=== PATIENT | male | born 1950 | race Caucasian/White ===

== ENCOUNTER 2017-03-22 10:56 | Day surgery (SDC) | payer MEDICARE, OTHER ==
[~2017-03-22] VITALS: Ht 177.8 cm; Wt 97.1 kg
[~2017-03-22 10:56] MED LIST: ASPI81CH PO; ATOR40TA PO; CLOP75; CLOP75 PO; DOCU100 PO; LISI20 PO; OXYC5 PO; TRAM50 PO; WARF4 PO
[2017-03-22] MEDS ORDERED: ASPI81CH (12:00)
[2017-10-20] MEDS ORDERED: CYCL10 PO (11:04)
[2017-10-21] MEDS ORDERED: ISOMON20 PO (08:36)
== END 2017-03-22 14:23 | disposition home or self-care (01) ==
LOC: ORSCSDS 10:56
PROVIDERS: Internal Medicine Gastroenterology
PROC: 0DBK8ZX Excision of Ascending Colon, Via Natural or Artificial Opening Endoscopic, Diagnostic (ICD-10-PCS; principal; 2017-03-22 12:30)
PROC: 0DBP8ZX Excision of Rectum, Via Natural or Artificial Opening Endoscopic, Diagnostic (ICD-10-PCS; principal; 2017-03-22 12:30)
PROC: 0DBL8ZX Excision of Transverse Colon, Via Natural or Artificial Opening Endoscopic, Diagnostic (ICD-10-PCS; principal; 2017-03-22 12:30)
DX: Z12.11 Encounter for screening for malignant neoplasm of colon (principal); D12.2 Benign neoplasm of ascending colon; K63.5 Polyp of colon; K62.1 Rectal polyp; K64.8 Other hemorrhoids; K57.30 Diverticulosis of large intestine without perforation or abscess without bleeding; Z83.71 Family history of colonic polyps; I10 Essential (primary) hypertension; I25.2 Old myocardial infarction; Z79.01 Long term (current) use of anticoagulants; Z79.82 Long term (current) use of aspirin; Z79.899 Other long term (current) drug therapy
CPT/HCPCS: 88305; J7120

== ENCOUNTER 2017-10-21 00:38 | Observation (INO) | payer MEDICARE, OTHER ==
[~2017-10-21] VITALS: Ht 177.8 cm; Wt 95.0 kg
[~2017-10-21 00:38] MED LIST changes: +ASPI81CH; +CYCL10 PO
[2017-10-21] MEDS ORDERED: Isosorbide Dini30 MG PO (08:36)
== END 2017-10-22 11:30 | disposition home or self-care (01) ==
LOC: MHTC 00:38 → PCU 12:38 → MHTC 12:39 → PCU 12:39
DX: I25.10 Atherosclerotic heart disease of native coronary artery without angina pectoris (principal); I25.2 Old myocardial infarction; I10 Essential (primary) hypertension; E78.5 Hyperlipidemia, unspecified; Z79.899 Other long term (current) drug therapy; Z79.02 Long term (current) use of antithrombotics/antiplatelets
CPT/HCPCS: 93458; 93931; 99152; 99153; C1769; C1894; J0360; J0690; J1644; J2250; J2720; J3010; J7030; Q9967

== ENCOUNTER 2017-11-15 17:04 | Inpatient (IN) | payer MEDICARE, OTHER ==
[~2017-11-15] VITALS: Ht 177.8 cm; Wt 101.2 kg
[~2017-11-15 17:04] MED LIST changes: +ISOMON20 PO
[2017-11-15 17:34] LABS: BASOPHILS ABSOLUTE AUTO 0.06 K/mm3 (0.00-0.23); BASOPHILS PERCENT AUTO 0 % (0-2); EOSINOPHILS ABSOLUTE AUTO 0.04 K/mm3 (0.00-0.68); EOSINOPHILS PERCENT AUTO 0 % (0-6); Hemoglobin 14.4 g/dL (13.5-17.5); IMMATURE GRAN ABSOLUTE AUTO 0.14 K/mm3 (0.00-0.10); IMMATURE GRAN PERCENT AUTO 1 % (0-1); LYMPHOCYTES ABSOLUTE AUTO 1.42 K/mm3 (0.84-5.20); LYMPHOCYTES PERCENT AUTO 8 % (21-46); MONOCYTES ABSOLUTE AUTO 1.21 K/mm3 (0.16-1.47); MONOCYTES PERCENT AUTO 6 % (4-13); Mean Corpuscular HGB 32.7 pg (26.0-34.0); Mean Corpuscular HGB Conc 34.3 g/dL (31.5-36.5); Mean Corpuscular Volume 96 fL (80-100); NEUTROPHILS PERCENT AUTO 85 % (41-73); RDW Coefficient Variation 13.4 % (11.7-14.2); RDW Standard Deviation 47.8 fL (35.1-46.3); White Blood Cell Count 18.97 K/mm3 (4.00-11.30)
[2017-11-15 17:42] LABS: Mean Platelet Volume 12.5 fL (9.1-12.4); Platelet Count 157 K/mm3 (150-400)
[2017-11-15 17:47] LABS: International Normalized Ratio 1.02; Prothrombin Time Results 10.5 Sec (9.7-11.5)
[2017-11-15 18:03] LABS: Ethanol (Alcohol), Blood, Med <3 mg/dL
[2017-11-15 18:07] LABS: Alanine Aminotransfer (ALT/SGP 37 U/L (12-78); Albumin, Blood 4.2 g/dL (3.4-5.0); Albumin/Globulin Ratio 1.3 (0.8-1.8); Alk Phos 63 U/L (50-136); Anion Gap 9 mmol/L (6-16); Aspartate Aminotrans (AST/SGOT 42 U/L (12-37); Bilirubin, Total 1.5 mg/dL (0.1-1.0); Blood Urea Nitrogen 17 mg/dL (8-24); Bun/Creatinine Ratio 17.5 (12.0-20.0); CO2, Blood 24 mmol/L (21-32); Chloride, Blood 104 mmol/L (98-108); Creatinine, Blood 0.97 mg/dL (0.60-1.20); Globulin, Blood 3.3 g/dL (2.2-4.0); Glomerular Filtration Rate >60 (60-); Glucose, Blood 132 mg/dL (70-99); Potassium, Blood 4.5 mmol/L (3.5-5.5); Sodium, Blood 137 mmol/L (136-145); Total Protein, Blood 7.5 g/dL (6.4-8.2)
[2017-11-15] MEDS ORDERED: Norco 5-325 Ta1 EACH PO (18:32)
[2017-11-15] MEDS ORDERED: Zofran Odt4 MG PO (18:32)
[2017-11-15] MEDS ORDERED: IBUP600 PO (18:32)
[2017-11-15] MEDS ORDERED: Aspirin EC81 MG PO (18:43)
[2017-11-15 20:01] LABS: Source, Urine Clean Catch
[2017-11-15 20:04] LABS: Bilirubin, Urine Neg (Neg); Blood, Urine Neg (Neg); Glucose Qualitative, Urine Neg (Neg); Ketones, Urine 2+ (Neg); Leukocyte Esterase, Urine Neg (Neg); Nitrite, Urine Neg (Neg); Protein, Urine 1+ (Neg); Specific Gravity, Urine 1.025 (1.003-1.022); Urobilinogen, Urine NORM (Normal)
[2017-11-15 20:13] LABS: Appearance, Urine Clear (Clear); Color, Urine Yellow (P-Yellow)
[2017-11-16 08:59] LABS: U Amphetamine Screen Not Detected; U Barbituate Screen Not Detected; U Benzodiazapine Screen Not Detected; U Buprenorphine Screen Not Detected; U Cannabinoids Screen Not Detected; U Cocaine Screen Not Detected; U Methadone Screen Not Detected; U Methamphetamine Screen Not Detected; U Opiates Screen Not Detected; U Oxycodone Screen Not Detected; U Phencyclidine Screen Not Detected; U Propoxyphene Screen Not Detected
== END 2017-11-19 14:17 | DRG 183 ==
LOC: ER 17:04 → SURS 17:05 → ER 18:49 → SURS 23:40
PROVIDERS: Emergency Medicine
DX: S22.42XA Multiple fractures of ribs, left side, initial encounter for closed fracture (principal); S32.492A Other specified fracture of left acetabulum, initial encounter for closed fracture; S32.592A Other specified fracture of left pubis, initial encounter for closed fracture; S32.19XA Other fracture of sacrum, initial encounter for closed fracture; I25.2 Old myocardial infarction; I48.91 Unspecified atrial fibrillation; I10 Essential (primary) hypertension; W11.XXXA Fall on and from ladder, initial encounter; Y93.E9 Activity, other interior property and clothing maintenance; Y92.009 Unspecified place in unspecified non-institutional (private) residence as the place of occurrence of the external cause; Z79.02 Long term (current) use of antithrombotics/antiplatelets; Z79.899 Other long term (current) drug therapy
CPT/HCPCS: 70450; 71046; 71260; 72125; 73502; 74177; 80053; 83690; 85025; 85610; 85730; 86850; 86900; 86901; 90686; 93005; 93010; 96374; 97110; 97116; 97162; 97166; 97530; 97535; 99285-25; G0480; G8978; G8979; G8987; G8988; J1885; J3010; J7030; Q9967

== ENCOUNTER → 2019-12-22 | Outpatient (CLI) | payer MEDICARE, OTHER ==
[~2019-12-22] MED LIST changes: +Aspirin EC81 MG PO; +IBUP600 PO; +Norco 5-325 Ta1 EACH PO; +Zofran Odt4 MG PO
== END | disposition home or self-care (01) ==
LOC: LAB EV 16:17 → LAB SHORT 16:17
DX: Z20.828 Contact with and (suspected) exposure to other viral communicable diseases (principal)
CPT/HCPCS: U0003